=== PATIENT | male | born 1975 | race Caucasian/White ===

== ENCOUNTER 2018-06-16 12:27 | Emergency (ER) | payer OTHER ==
[~2018-06-16] VITALS: Ht 180.3 cm; Wt 102.3 kg
[2018-06-16 12:43] VITALS: BP 133/70
[2018-06-16] MEDS ORDERED: IBUPROFEN 600 MG TAB PO ONE (13:00)
--- NOTE | 2018-06-16 13:42 | REP ---
Right knee series: Five views. History: Injury in a fall. Findings: Five views of the right knee demonstrate no evidence of fracture or subluxation. Bones joints soft tissues are unremarkable. Impression: Negative right knee radiographs. Electronically Signed by Alec Yu MD 06/16/2018 01:33 P
[2018-06-16] MEDS ORDERED: IBUP-1022 PO (14:00)
== END 2018-06-16 14:10 | disposition home or self-care (01) ==
LOC: M ED 12:27
DX: S83.91XA Sprain of unspecified site of right knee, initial encounter (principal); W19.XXXA Unspecified fall, initial encounter; Y92.89 Other specified places as the place of occurrence of the external cause; Y93.9 Activity, unspecified; Y99.0 Civilian activity done for income or pay; Z72.0 Tobacco use

== ENCOUNTER 2020-12-10 00:09 | Emergency (ER) | payer OTHER ==
[~2020-12-10] VITALS: Ht 180.3 cm; Wt 94.0 kg
[~2020-12-10 00:09] MED LIST: IBUP-1022 PO
[2020-12-10 00:10] VITALS: BP 116/64
== END 2020-12-10 01:53 | disposition left against medical advice (07) ==
LOC: M ED 00:09
DX: Z53.21 Procedure and treatment not carried out due to patient leaving prior to being seen by health care provider (principal)

== ENCOUNTER → 2020-12-12 | Outpatient (CLI) | payer OTHER ==
--- NOTE | 2020-12-12 10:19 | REP ---
INDICATION: PAIN. COMPARISON: Left ankle 11/08/2013 TECHNIQUE: Four views of the foot. FINDINGS: Lateral view shows small plantar calcaneal spur, unchanged there is an old healed and remodeled distal tibial shaft fracture again noted. Subtalar joints, talonavicular and calcaneocuboid joints are unremarkable. Tarsal bones and their articulations were unremarkable. The metatarsals show no fracture or focal lesion MTP joints and IP joints grossly intact. See no radiopaque foreign body. IMPRESSION: 1. Minor plantar calcaneal spur similar to the previous study an old, healed and remodeled fracture of the distal tibial shaft also unchanged from 2014. No new or acute finding in the bony foot. <Electronically signed by Ashvin Condon > 12/12/20 1016
== END ==
LOC: M WUC 09:37
PROVIDERS: ATTEND Internal Medicine
DX: M79.672 Pain in left foot (principal); M77.32 Calcaneal spur, left foot; Z87.81 Personal history of (healed) traumatic fracture